=== PATIENT | female | born 1970 | race Two or more races ===

== ENCOUNTER → 2017-03-11 | Outpatient (CLI) | payer OTHER ==
[2017-03-11 14:53] LABS: Hepatitis B Surface Antibody Negative
== END | disposition home or self-care (01) ==
LOC: LAB 13:45
PROVIDERS: ATTEND Physician Assistant
DX: T14.8 Other injury of unspecified body region (principal); W27.3XXA Contact with needle (sewing), initial encounter
CPT/HCPCS: 36415; 86703; 86706; 86803; 87340

== ENCOUNTER → 2017-07-01 | Outpatient (CLI) | payer OTHER ==
[2017-07-01 11:41] LABS: Hepatitis B Surface Antibody Negative
[2017-07-01 11:52] LABS: Hepatitis B Surface Antigen Negative (Negative)
== END | disposition home or self-care (01) ==
LOC: LAB 10:32
PROVIDERS: ATTEND Preventive Medicine Preventive Medicine/Occupational Environmental Medicine
DX: Z01.89 Encounter for other specified special examinations (principal)
CPT/HCPCS: 36415; 86703; 86706; 86803; 87340